=== PATIENT | female | born 1950 | race Two or more races ===

== ENCOUNTER 2017-05-09 08:32 | Outpatient (CLI) | payer OTHER ==
[~2017-05-09 08:32] MED LIST: AMLODIPINE BESY10 MG; ATENOLOL100 MG; ATORVASTATIN CA20 MG; DAFLONEX-XL TA1 EACH; GLIMEPIRIDE4 MG; INTESTINEX680 MG PO; KOMBIGLYZE XR1 EAC1; LOSARTAN POTAS100 MG; METOPROLOL TAR100 MG; OMEPRAZOLE20 MG; SUCRALFATE1 G; SYNTHROID50 MCG; ZANTAC150 MG PO
== END 2017-05-09 08:40 | disposition home or self-care (01) ==
LOC: SONOGRAMA 08:32
DX: N62 Hypertrophy of breast (principal)

== ENCOUNTER 2018-04-28 14:24 | Outpatient (CLI) | payer OTHER | END 2018-04-28 14:28 | disposition home or self-care (01) | LOC: RAD 14:24 | DX: M50.10 Cervical disc disorder with radiculopathy, unspecified cervical region (principal) ==

== ENCOUNTER → 2018-04-28 15:55 | Outpatient (CLI) | payer OTHER | END | disposition home or self-care (01) | LOC: LAB 15:55 | DX: E55.9 Vitamin D deficiency, unspecified (principal) ==

== ENCOUNTER 2018-05-12 09:32 | Outpatient (CLI) | payer OTHER | END 2018-05-12 09:45 | disposition home or self-care (01) | LOC: TOM 09:32 | DX: M50.10 Cervical disc disorder with radiculopathy, unspecified cervical region (principal) ==

== ENCOUNTER 2018-05-14 12:41 | Outpatient (CLI) | payer OTHER | END 2018-05-14 16:32 | disposition home or self-care (01) | LOC: NUCLEAR 12:41 | DX: M50.10 Cervical disc disorder with radiculopathy, unspecified cervical region (principal); M81.0 Age-related osteoporosis without current pathological fracture ==